=== PATIENT | female | born 1995 | race Caucasian/White ===

== ENCOUNTER 2021-04-03 09:23 | Outpatient (REF) | payer SELFPAY ==
[2021-04-03 10:58] LABS: MANUAL DIFF FLAG NO
[2021-04-03 11:02] LABS: Basophils Percent Auto 0.7 % (0-2); Eosinophils Absolute Auto 0.1 X10*3/uL (0.0-0.4); Eosinophils Percent Auto 2.3 % (0-4); Hemoglobin 14.1 g/dl (12.0-16.0); Imm Gran Abs Auto 0.01 X10*3/uL (0.00-0.03); Imm Gran Pct Auto 0.2 % (0.0-0.4); Lymphocytes Absolute Auto 1.9 X10*3/uL (1.2-4.9); Lymphocytes Percent Auto 44.2 % (20-40); Mean Corpuscular Volume 87.3 fL (80-98); Mean Platelet Volume 11.5 fL (9.4-12.3); Monocytes Absolute Auto 0.3 X10*3/uL (0.1-1.2); Monocytes Percent Auto 6.9 % (2-11); Neutrophils Percent Auto 45.7 % (45-73); Platelet Count 191 X10*3/uL (160-400); Red Blood Count 5.04 X10*6/uL (4.20-5.50); Red Cell Distribution Width 11.7 % (11.0-16.0); White Blood Count 4.3 X10*3/uL (4.8-10.8)
[2021-04-03 12:21] LABS: Alanine Aminotransferase 13 U/L (0-31); Albumin Level 4.2 g/dL (3.5-5.0); Alkaline Phosphatase 49 U/L (39-117); Anion Gap 13 (12-20); Aspartate Amino Transferase 15 U/L (5-31); Bilirubin Total 0.7 mg/dL (0.0-1.0); Blood Urea Nitrogen 11 mg/dL (9-16); Calcium 9.2 mg/dL (8.4-10.2); Carbon Dioxide 23 mmol/L (22-29); Chloride 108 mmol/L (96-108); Cholesterol 156 mg/dL; Estimated Glomerular Filt Rate > 60; Glucose Fasting 85 mg/dL (60-99); HDL Cholesterol 57 mg/dL; LDL Cholesterol Calculated 89 mg/dl; Potassium 4.6 mmol/L (3.3-5.1); Sodium 139 mmol/L (135-145); Total Protein 6.7 g/dL (6.5-8.0); Triglycerides 50 mg/dL
== END 2021-04-03 09:24 | disposition home or self-care (01) ==
LOC: HO.MANLDS 09:23
PROVIDERS: PCP Internal Medicine; Visit Provider Physician Assistant
DX: Z00.00 Encounter for general adult medical examination without abnormal findings (principal)
CPT/HCPCS: 36415; 80053; 80061; 85025

== ENCOUNTER 2024-08-12 00:32 | Emergency (ER) | payer SELFPAY ==
[2024-08-12 00:57] VITALS: PULSE 41; O2SAT 98; BMI 30.8
== END 2024-08-12 01:28 | disposition left against medical advice (07) ==
PROVIDERS: Emergency Provider Emergency Medicine
DX: F19.90 Other psychoactive substance use, unspecified, uncomplicated (principal); Z53.21 Procedure and treatment not carried out due to patient leaving prior to being seen by health care provider
CPT/HCPCS: 99281

== ENCOUNTER 2024-08-12 01:38 | Emergency (ER) | payer SELFPAY ==
[2024-08-12 01:46] VITALS: BP 109/58; PULSE 72; RESP 16; TEMP 36.6; O2SAT 98; BMI 23.5
--- NOTE | 2024-08-12 03:06 | MHC.EDTECH ---
Patient was bladder changer by staff and security ,all Patient belonings are locked up in decon .
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
[2024-08-12 04:39] VITALS: BP 114/65; PULSE 55; RESP 15; TEMP 36.2; O2SAT 97
--- NOTE | 2024-08-12 06:17 | PC.NURSE ---
conts to rest quietly, with eyes closed, resp with ease, no s/s of acute distress.
[2024-08-12 06:36] VITALS: BP 128/75; PULSE 56; RESP 15; TEMP 36.2; O2SAT 97
--- NOTE | 2024-08-12 06:58 | PC.NURSE ---
report given Selam PERES
[2024-08-12 07:31] VITALS: BP 128/75; PULSE 56; RESP 15; TEMP 36.2; O2SAT 97
== END 2024-08-12 07:33 | disposition home or self-care (01) ==
PROVIDERS: Emergency Provider Emergency Medicine
DX: F19.10 Other psychoactive substance abuse, uncomplicated (principal); Z59.00 Homelessness unspecified
CPT/HCPCS: 99283; 99284